=== PATIENT | female | born 1980 | race African-American/Black ===

== ENCOUNTER 2019-04-10 11:16 | Emergency (ER) | payer MEDICAID ==
[~2019-04-10] VITALS: Ht 157.5 cm; Wt 48.5 kg
[~2019-04-10 11:16] MED LIST: CODE-54 PO; FRS325T PO; Ibuprofen PO; METH4TAB PO; PREN-93 PO; SULF1TAB38 PO; TRM50T PO
[2019-04-10] MEDS ORDERED: SULF1TAB35 PO (11:28)
--- NOTE | 2019-04-10 11:28 | ED Integumentary General ---
General Chief Complaint: Skin/Wound Problems Stated Complaint: SORE ON FACE Nursing Triage Note: STATES WOUND OF FACE STARTED YESTERDAY. HX OF STAFF AND MRSA ON FACE BEFORE. Source: patient Exam Limitations: no limitations History of Present Illness Date Seen by Provider: Apr 10, 2019 Time Seen by Provider: 11:25 Initial Comments To ER with a sore on her left cheek noted for 2-3 days, when she squeezes this she is able to get purulent material out. No fevers or chills. History of MRSA. Severity: moderate Location: face Associated Symptoms: denies symptoms Allergies and Home Medications Allergies Coded Allergies: No Known Drug Allergies (Unverified , 11/10/11) Home Medications Acetaminophen/Codeine 1 Tab Tablet, 1-2 TAB PO Q4H PRN for PAIN Prescribed by: TAYLA MCKENNA on 09/12/14 1043 Ferrous Sulfate 325 Mg Tab, 325 MG PO DAILY@0700 Prescribed by: TAYLA MCKENNA on 09/12/14 1043 Vit/Fe Fumarate/Fa 1 Each Tablet, 1 EACH PO DAILY Prescribed by: MATIAS NAIR on 09/10/14 1733 [Ibuprofen] 600 MG TAB, 600 MG PO Q6H PRN for PAIN Prescribed by: TAYLA MCKENNA on 09/12/14 1043 Patient Home Medication List Home Medication List Reviewed: Yes Review of Systems Review of Systems Constitutional: see HPI; No chills, No fever EENTM: see HPI; No eye pain, No vision loss Respiratory: no symptoms reported Cardiovascular: no symptoms reported Genitourinary: no symptoms reported Musculoskeletal: no symptoms reported Past Fyvuzpt-Puvjqi-Iqqcvn Hx Patient Social History Recent Foreign Travel: No Contact w/Someone Who Travel: No Recent Infectious Disease Expo: No Immunizations Up To Date Tetanus Booster (TDap): Less than 5yrs PED Vaccines UTD: No Past Medical History Reproductive Disorders: No Female Reproductive Disorders: Denies Sexually Transmitted Disease: No HIV/AIDS: No Anxiety Family Medical History Patient reports no known family medical history. Physical Exam Vital Signs Capillary Refill : Less Than 3 Seconds General Appearance: WD/WN, no apparent distress HEENT: PERRL/EOMI, normal ENT inspection, TMs normal, other (to the left zygomatic prominence beneath the left thigh there is a small 4 mm area of induration without fluctuance or pustule. Surrounding this is about 2 cm of erythema and slight swelling.) Neck: non-tender, full range of motion Respiratory: normal breath sounds, no respiratory distress, no accessory muscle use Neurologic/Psychiatric: no motor/sensory deficits, alert, normal mood/affect, oriented x 3 Skin: normal color, warm/dry Skin Problem Location: face Skin Problem Character: erythema Progress/Results/Core Measures Results/Orders Blood Pressure Mean: 90 Departure Impression Primary Impression: Abscess Disposition: 01 HOME, SELF-CARE Condition: Stable Departure-Patient Inst. Decision time for Depature: 11:27 Referrals: NO,LOCAL PHYSICIAN (PCP/Family) Primary Care Physician Patient Instructions: Skin Abscess Add. Discharge Instructions: 1. Warm compresses to this area 2. Return to ER for any concerns 3. Antibiotics as directed. All discharge instructions reviewed with patient and/or family. Voiced understanding. Scripts Sulfamethoxazole/Trimethoprim (Bactrim Ds Tablet) 1 Each Tablet 1 EACH PO BID, #14 TAB Prov: ARLENE ROSALES APRN 04/10/19 Images Head/Face 1 - Swelling, Tenderness ARLENE ROSALES APRN Apr 10, 2019 11:28
[2019-04-10 11:32] VITALS: BP 112/79
== END 2019-04-10 11:32 | disposition home or self-care (01) ==
LOC: EDUNIT# 11:16 → ER 11:18
DX: L02.01 Cutaneous abscess of face (principal); Z86.14 Personal history of Methicillin resistant Staphylococcus aureus infection
CPT/HCPCS: 99282